=== PATIENT | female | born 1990 | race Two or more races ===

== ENCOUNTER 2023-05-29 12:26 | Emergency (ER) | payer BC ==
[~2023-05-29] VITALS: Ht 154.9 cm; Wt 61.2 kg
[2023-05-29 15:57] LABS: HEMATOCRIT 36.2 % (36.0-45.00); HEMOGLOBIN 12.6 g/dL (12.0-15.00); MEAN CORPUSCULAR HEMOGLOBIN 26.1 pg (27.00-32.0); MEAN CORPUSCULAR HGB CONC 34.8 g/dl (32.0-36.0); PLATELET COUNT 336 K/uL (150-450); RED BLOOD COUNT 4.82 M/uL (4.00-6.00); RED CELL DISTRIBUTION WIDTH 16.5 % (11.5-14.5)
[2023-05-29] MEDS ORDERED: ANTI-ITCH28 GM TOP (16:32)
[2023-05-29] MEDS ORDERED: XOLEGEL45 GM TOP (16:32)
== END 2023-05-29 17:04 | disposition home or self-care (01) ==
LOC: ER 12:26
PROVIDERS: Nurse Practitioner Family
DX: L30.8 Other specified dermatitis (principal)
CPT/HCPCS: 36415; 96372; 99283; J1200